=== PATIENT | female | born 1990 ===

== ENCOUNTER 2018-01-12 02:08 | Emergency (ER) | payer MEDICAID ==
[2018-01-12 02:21] VITALS: BP 118/68; PULSE 63; RESP 16; TEMP 98.1; O2SAT 100
--- NOTE | 2018-01-12 02:33 | ED PDOC ---
HPI: General Adult Time Seen by Provider: 01/12/18 02:27 Chief Complaint (Nursing): Back Pain Chief Complaint (Provider): fall History Per: Patient Additional Complaint(s): 27-year-old right-hand dominant female presents with pain to right hand and lower back status post accidental trip and fall while walking down a set of stairs at home. Injury occurred last night at 11 PM. Patient denies dizziness or syncope prior to fall, denies head injury or loss of consciousness as a result of fall. Patient took Tylenol about 1 hour after the fall but still has pain prompting visit. PMD: none Past Medical History Reviewed: Historical Data, Nursing Documentation, Vital Signs Vital Signs: Last Vital Signs Temp 98.1 F 01/12/18 02:19 Pulse 63 01/12/18 02:19 Resp 16 01/12/18 02:19 BP 118/68 01/12/18 02:19 Pulse Ox 100 01/12/18 02:36 - Medical History PMH: No Chronic Diseases - Surgical History Surgical History: - Family History Family History: States: No Known Family Hx - Living Arrangements Living Arrangements: With Family - Social History Current smoker - smoking cessation education provided: No Alcohol: None Drugs: Denies - Home Medications Home Medications: Ambulatory Orders Medication Instructions Recorded Cyclobenzaprine [Cyclobenzaprine 10 mg PO TID PRN #20 tab 01/12/18 HCl] Ibuprofen [Motrin] 600 mg PO Q6 PRN #20 tab 01/12/18 - Allergies Allergies/Adverse Reactions: Allergies Allergy/AdvReac Type Severity Reaction Status Date / Time No Known Allergies Allergy Verified 01/12/18 02:21 Review of Systems ROS Statement: Except As Marked, All Systems Reviewed And Found Negative Musculoskeletal: Positive for: Back Pain, Hand Pain (right), Other (s/p fall) Neurological: Positive for: Other (no head injury or LOC) Physical Exam - Reviewed Nursing Documentation Reviewed: Yes Vital Signs Reviewed: Yes - Physical Exam Appears: Positive for: Well, Non-toxic, No Acute Distress Skin: Negative for: Rash Eye Exam: Positive for: Normal appearance Neck: Positive for: Normal, Painless ROM Cardiovascular/Chest: Positive for: Regular Rate, Rhythm Respiratory: Positive for: Normal Breath Sounds Gastrointestinal/Abdominal: Positive for: Soft. Negative for: Tenderness Back: Positive for: Vertebral Tenderness (midline of lumbar spine, no step off, negative bilateral straight leg raise). Negative for: L CVA Tenderness, R CVA Tenderness Extremity: Positive for: Other (diffuse tenderness and swelling to right hand with decreased rom of all digits, no snuff box tenderness, full rom of right wrist) Neurologic/Psych: Positive for: Alert, Oriented - Laboratory Results Urine POC: Negative - ECG O2 Sat by Pulse Oximetry: 100 Pulse Ox Interpretation: Normal - Other Rad Right hand x-ray X-Ray: Interpreted by Me, Viewed By Me X-Ray Interpretation: possible nondisplaced prox 4th metacarpal fracture L/S Spine x-ray X-Ray: Interpreted by Me, Viewed By Me X-Ray Interpretation: no fx, no dis Medical Decision Making Medical Decision Makin27 year old with right hand pain and low back pain s/p fall Plan: test X-ray right hand X-ray LS spine Patient aware of x-ray results, all questions answered. Splint applied to right hand. Prescriptions given for Motrin and Flexeril. Patient was referred to clinic for follow up. Procedures - Splinting Location: right hand Pre-Made Type: metal (metallic metarcarpal splint secured with perri wrap) Pre-Proc Neuro Vasc Exam: normal Post-Proc Neuro Vasc Exam: normal Disposition - Clinical Impression Clinical Impression: Hand sprain, Back strain, Hand contusion - Patient ED Disposition Is Patient to be Admitted: No Counseled Patient/Family Regarding: Studies Performed, Diagnosis, Need For Followup, Rx Given - Disposition Referrals: [facility] [place] [Outside] Disposition: Routine/Home Disposition Time: 04:19 Condition: STABLE Additional Instructions: Ice, rest and elevate affected areas. Take rx meds as directed. Follow up with clinic in 2-3 days. Prescriptions: Cyclobenzaprine [Cyclobenzaprine HCl] 10 mg PO TID PRN #20 tab PRN Reason: Muscle Spasm Ibuprofen [Motrin] 600 mg PO Q6 PRN #20 tab PRN Reason: Pain, Moderate (4-7) Instructions: Low Back Pain (DC), Muscle Strain, Contusion (DC) Forms: [employer] (Kyrgyz) Print Language: MOHAWK
--- NOTE | 2018-01-12 10:43 | RAD ---
PROCEDURE: Radiographs of the Lumbar Spine. HISTORY: trauma COMPARISON: No prior. FINDINGS: BONES: Normal alignment. No listhesis. No fracture. DISC SPACES: Unremarkable. OTHER FINDINGS: None. IMPRESSION: No evidence acute acute fracture. .
--- NOTE | 2018-01-12 12:00 | RAD ---
PROCEDURE: Right Hand Radiographs. HISTORY: trauma COMPARISON: None. FINDINGS: BONES: No definitive radiographic evidence of acute displaced fracture nor dislocation. The osseous structures appear intact. JOINTS: Normal. No osteoarthritic changes. SOFT TISSUES: Normal. OTHER FINDINGS: None. IMPRESSION: No definitive evidence of acute displaced fracture nor dislocation. If symptoms persist or or occult fracture suspected clinically recommend repeat radiographs in 7-10 days as most fractures should become radiographically evident in this timeframe.
== END 2018-01-12 04:31 | disposition home or self-care (01) ==
LOC: H.ER 02:08
DX: S63.91XA Sprain of unspecified part of right wrist and hand, initial encounter (principal); S39.012A Strain of muscle, fascia and tendon of lower back, initial encounter; S60.221A Contusion of right hand, initial encounter; W10.9XXA Fall (on) (from) unspecified stairs and steps, initial encounter